=== PATIENT | female | born 1990 | race Caucasian/White ===

== ENCOUNTER 2020-10-07 10:29 | Emergency (ER) | payer OTHER ==
[2020-10-07 10:45] VITALS: BMI 25.7
[2020-10-07 11:52] LABS: BASO % 0.8 % (0-2.0); EOS % 2.1 % (0-4.5); HEMATOCRIT 23.4 % (32.4-45.2); HEMOGLOBIN 7.4 GM/dL (10.7-15.3); MCH 21.7 pg (25.7-33.7); MCHC 31.6 g/dl (32.0-36.0); MEAN CELL VOLUME 68.5 fl (80-96); MEAN PLT VOLUME 8.9 fl (7.5-11.1); MONO % 6.4 % (3.8-10.2); NEUT % 72.7 % (42.8-82.8); PLATELET COUNT 219 K/MM3 (134-434); RBC 3.42 M/mm3 (3.60-5.2); RDW 18.3 % (11.6-15.6); WHITE BLOOD COUNT 10.3 K/mm3 (4.0-10.0)
[2020-10-07 12:03] LABS: INR 1.07 (0.83-1.09); PROTHROMBIN TIME (PATIENT) 13.1 SEC (9.7-13.0)
[2020-10-07 12:05] LABS: ACTIVATED PTT 25.7 SECONDS (25.2-36.5)
[2020-10-07 12:26] LABS: POTASSIUM 3.9 mmol/L (3.5-5.1)
[2020-10-07 12:42] LABS: ALBUMIN 2.6 g/dl (3.4-5.0); BILIRUBIN,TOTAL 0.5 mg/dL (0.2-1); BLOOD UREA NITROGEN 7.8 mg/dL (7-18); CALCIUM 8.2 mg/dL (8.5-10.1); CREATININE 0.4 mg/dL (0.55-1.3); TOT PROT 6.3 g/dl (6.4-8.2)
[2020-10-07 12:43] VITALS: BP 98/60; PULSE 66; TEMP 97.9
[2020-10-07 20:53] LABS: ANISOCYTOSIS 0; MACROCYTOSIS 0; PLATELET ESTIMATE NORMAL
== END 2020-10-07 13:10 | disposition home or self-care (01) ==
LOC: JER 10:29
DX: E87.71 Transfusion associated circulatory overload (principal); Z3A.31 31 weeks gestation of pregnancy
CPT/HCPCS: 36415; 80053; 85025; 85610; 85730; 86850; 86900; 86901; 99283-25

== ENCOUNTER 2020-11-14 06:27 | Day surgery (SDC) | payer OTHER ==
[2020-11-14] MEDS ORDERED: FERRIC CARBOXYMALTOSE 750 MG in SODIUM CHLORIDE 250 ML IVPB ONE (13:45)
[2020-11-14 14:29] VITALS: TEMP 98.3
[2020-11-14 14:30] VITALS: BP 104/53; PULSE 73
== END 2020-11-14 15:08 | disposition home or self-care (01) ==
LOC: JINFUSION 06:27
PROVIDERS: ATTEND Obstetrics & Gynecology
PROC: 3E033GC Introduction of Other Therapeutic Substance into Peripheral Vein, Percutaneous Approach (ICD-10-PCS; principal; 2020-11-14)
DX: D50.9 Iron deficiency anemia, unspecified (principal)
CPT/HCPCS: 96365; J1439

== ENCOUNTER 2020-11-21 05:00 | Day surgery (SDC) | payer OTHER ==
[2020-11-21 13:21] VITALS: TEMP 98.1
[2020-11-21] MEDS ORDERED: FERRIC CARBOXYMALTOSE 750 MG in SODIUM CHLORIDE 250 ML IVPB ONE (14:00)
[2020-11-21 14:31] VITALS: BP 103/57; PULSE 77
== END 2020-11-21 15:04 | disposition home or self-care (01) ==
LOC: JINFUSION 05:00
PROVIDERS: ATTEND Obstetrics & Gynecology
PROC: 3E033GC Introduction of Other Therapeutic Substance into Peripheral Vein, Percutaneous Approach (ICD-10-PCS; principal; 2020-11-21)
DX: D50.9 Iron deficiency anemia, unspecified (principal)
CPT/HCPCS: 96365; J1439

== ENCOUNTER 2020-12-04 06:05 | Inpatient (IN) | payer OTHER ==
[2020-12-04] MEDS ORDERED: CITRIC ACID/SODIUM CITRATE 30 ML UNIT-DOSE CUP PO ONE (06:30)
[2020-12-04] MEDS: ELECTROLYTE-148 SOLN 500 ML IV SCH (06:30)
[2020-12-04 06:45] VITALS: BMI 28.3
[2020-12-04] MEDS ORDERED: morphine SULFATE/Preservative Free 0.5 MG/ML (1cc Syringe) ONE (07:29)
[2020-12-04] MEDS ORDERED: MIDAZOLAM HCL 2 MG/2 ML SINGLE DOSE VIAL ONE (07:29)
[2020-12-04] MEDS ORDERED: PHENYLEPHRINE HCL 10 MG/1 ML SINGLE DOSE VIAL ONE (07:29)
[2020-12-04] MEDS ORDERED: SUCCINYLCHOLINE CHLORIDE 200 MG/10 ML SYRINGE ONE (07:29)
[2020-12-04] MEDS ORDERED: ePHEDrine SULFATE 50 MG/1 ML AMPULE ONE (07:29)
[2020-12-04] MEDS ORDERED: PROPOFOL 20 ML ONE (07:29)
[2020-12-04] MEDS ORDERED: ONDANSETRON 4 MG/2 ML VIAL ONE (08:23)
[2020-12-04] MEDS ORDERED: ceFAZolin SODIUM 1 GM VIAL ONE (08:23)
[2020-12-04] MEDS ORDERED: OXYTOCIN 10 UNITS/ML VIAL ONE (08:23)
[2020-12-04] MEDS ORDERED: KETOROLAC TROMETHAMINE 30 MG/1 ML VIAL ONE (08:23)
[2020-12-04 09:20] LABS: CORD HCO3 20.2 mmHg (20-29); CORD PCO2 38.1 mmHg (30-78); CORD pH 7.342 (7.14-7.44)
[2020-12-04 09:22] LABS: CORD BASE EXCESS -1.8 mmol/L (0-2); CORD HCO3 25.4 mmHg (20-29); CORD PCO2 53.8 mmHg (30-78); CORD pH 7.292 (7.14-7.44)
[2020-12-04] MEDS ORDERED: IBUPROFEN 800 MG/8 ML IJ IVPB PRN (09:24)
[2020-12-04] MEDS ORDERED: METHYLERGONOVINE MALEATE 0.2 MG/1 ML AMP IM PRN (09:24)
[2020-12-04] MEDS ORDERED: morphine SULFATE/PF 0.5 MG/ML (2cc Syringe - QUVA) SPIN ONE (09:30)
[2020-12-04] MEDS ORDERED: OXYTOCIN 20 UNITS in 0.9% NS 1000 ML INFUS.BAG IV ONE (09:31)
[2020-12-04] MEDS ORDERED: OXYTOCIN 20 UNITS in 0.9% NS 20 UNIT/1,000 ML INFUS.BAG IV ONE (09:39)
[2020-12-04] MEDS ORDERED: SENNOSIDES/DOCUSATE COMBO (SENNA PLUS) TABLET (UD) PO PRN (22:00)
[2020-12-04] MEDS ORDERED: oxyCODONE HCL 5 MG TABLET PO PRN (22:00)
[2020-12-05] MEDS: ELECTROLYTE-148 SOLN 500 ML IV SCH ×3 (07:26→11:40)
[2020-12-05 08:50] LABS: EOS % 4.1 % (0-4.5); HEMATOCRIT 34.4 % (32.4-45.2); HEMOGLOBIN 11.2 GM/dL (10.7-15.3); MCH 27.7 pg (25.7-33.7); MCHC 32.7 g/dl (32.0-36.0); MEAN CELL VOLUME 84.6 fl (80-96); MEAN PLT VOLUME 9.1 fl (7.5-11.1); MONO % 7.9 % (3.8-10.2); PLATELET COUNT 186 K/MM3 (134-434); RBC 4.06 M/mm3 (3.60-5.2); RDW 30.8 % (11.6-15.6); WHITE BLOOD COUNT 6.4 K/mm3 (4.0-10.0)
[2020-12-05] MEDS ORDERED: BISACODYL 10 MG SUPP.RECT RC PRN (09:24)
[2020-12-05] MEDS: ENOXAPARIN NA (PORCINE) 40 MG/0.4 ML DISP.SYRIN SQ SCH (11:20)
[2020-12-05] MEDS: PRENATAL VITAMINS W/ FOLIC ACID TABLET (FP) PO SCH (11:21)
[2020-12-05] MEDS: IBUPROFEN 600 MG TABLET (FP) PO PRN ×2 (11:40→16:39)
[2020-12-05] MEDS: FERROUS SO4 325 MG TABLET (FP) PO SCH (18:05)
[2020-12-06] MEDS: IBUPROFEN 600 MG TABLET (FP) PO PRN ×2 (01:11→16:37)
[2020-12-06] MEDS: ACETAMINOPHEN 325 MG TABLET (FP) PO PRN ×2 (01:11→16:37)
[2020-12-06] MEDS: SIMETHICONE 80 MG TAB.CHEW (FP) PO PRN ×2 (01:12→16:37)
[2020-12-06] MEDS: ELECTROLYTE-148 SOLN 500 ML IV SCH ×2 (07:21)
[2020-12-06] MEDS: FERROUS SO4 325 MG TABLET (FP) PO SCH ×2 (08:50→16:37)
[2020-12-06] MEDS: ENOXAPARIN NA (PORCINE) 40 MG/0.4 ML DISP.SYRIN SQ SCH (10:03)
[2020-12-06] MEDS: PRENATAL VITAMINS W/ FOLIC ACID TABLET (FP) PO SCH (10:03)
[2020-12-07] MEDS: IBUPROFEN 600 MG TABLET (FP) PO PRN (05:17)
[2020-12-07] MEDS: ACETAMINOPHEN 325 MG TABLET (FP) PO PRN (05:17)
[2020-12-07] MEDS: SIMETHICONE 80 MG TAB.CHEW (FP) PO PRN (05:18)
[2020-12-07] MEDS: ELECTROLYTE-148 SOLN 500 ML IV SCH ×2 (07:11→07:12)
[2020-12-07] MEDS: FERROUS SO4 325 MG TABLET (FP) PO SCH (08:44)
[2020-12-07 08:57] LABS: EOS % 5.5 % (0-4.5); HEMATOCRIT 32.4 % (32.4-45.2); HEMOGLOBIN 10.7 GM/dL (10.7-15.3); LYMPH % 32.6 % (8-40); MCHC 32.9 g/dl (32.0-36.0); MEAN PLT VOLUME 9.6 fl (7.5-11.1); MONO % 8.3 % (3.8-10.2); NEUT % 52.6 % (42.8-82.8); PLATELET COUNT 203 K/MM3 (134-434); RBC 3.81 M/mm3 (3.60-5.2); RDW 29.7 % (11.6-15.6); WHITE BLOOD COUNT 4.9 K/mm3 (4.0-10.0)
[2020-12-07] MEDS: PRENATAL VITAMINS W/ FOLIC ACID TABLET (FP) PO SCH (09:22)
[2020-12-07] MEDS: ENOXAPARIN NA (PORCINE) 40 MG/0.4 ML DISP.SYRIN SQ SCH (09:22)
[2020-12-07 11:51] LABS: ANISOCYTOSIS 2+; MACROCYTOSIS 1+; PLATELET ESTIMATE NORMAL
[2020-12-07 11:57] VITALS: BP 101/68; PULSE 64; TEMP 98.5
== END 2020-12-07 12:10 | disposition home or self-care (01) | DRG 540 ==
LOC: JLDR 06:05 → J3W 11:00
PROVIDERS: ADMIT Obstetrics & Gynecology; ATTEND Obstetrics & Gynecology
PROC: 10D00Z1 Extraction of Products of Conception, Low, Open Approach (ICD-10-PCS; principal; 2020-12-04)
DX: O34.219 Maternal care for unspecified type scar from previous cesarean delivery (principal); O99.013 Anemia complicating pregnancy, third trimester; D64.9 Anemia, unspecified; O69.81X0 Labor and delivery complicated by cord around neck, without compression, not applicable or unspecified; Z3A.39 39 weeks gestation of pregnancy; Z37.0 Single live birth
CPT/HCPCS: 36415; 36600; 82803; 85025; 88307-TC

== ENCOUNTER 2022-01-23 07:34 | Emergency (ER) | payer OTHER ==
[2022-01-23 08:05] VITALS: BMI 20.9
[2022-01-23] MEDS ORDERED: LACTATED RINGERS SOLUTION 1000 ML INFUS.BAG IV ONE (08:30)
[2022-01-23 10:13] LABS: CALCIUM 8.2 mg/dL (8.5-10.1)
[2022-01-23 10:14] LABS: ALBUMIN 3.4 g/dl (3.4-5.0); BLOOD UREA NITROGEN 7.8 mg/dL (7-18)
[2022-01-23 10:15] LABS: BASO % 0.5 % (0-2.0); EOS % 0.1 % (0-4.5); HEMATOCRIT 35.4 % (32.4-45.2); HEMOGLOBIN 11.7 GM/dL (10.7-15.3); LYMPH % 14.1 % (8-40); MCH 28.3 pg (25.7-33.7); MCHC 33.1 g/dl (32.0-36.0); MEAN CELL VOLUME 85.5 fl (80-96); MEAN PLT VOLUME 9.6 fl (7.5-11.1); MONO % 8.3 % (3.8-10.2); PLATELET COUNT 171 10^3/uL (134-434); RBC 4.14 M/mm3 (3.60-5.2); RDW 13.5 % (11.6-15.6); WHITE BLOOD COUNT 3.9 K/mm3 (4.0-10.0)
[2022-01-23] MEDS ORDERED: KETOROLAC TROMETHAMINE 15 MG/ML VIAL IVPUSH ONE (10:17)
[2022-01-23 10:19] LABS: BILIRUBIN,TOTAL 0.4 mg/dL (0.2-1); TOT PROT 6.7 g/dl (6.4-8.2)
[2022-01-23] MEDS ORDERED: KETOROLAC TROMETHAMINE 15 MG/ML VIAL ONE (10:21)
[2022-01-23 10:25] LABS: CREATININE 0.6 mg/dL (0.55-1.3)
[2022-01-23 10:28] VITALS: BP 108/74; PULSE 88; TEMP 98.6
== END 2022-01-23 10:54 | disposition home or self-care (01) ==
LOC: JER 07:34
PROC: 3E0333Z Introduction of Anti-inflammatory into Peripheral Vein, Percutaneous Approach (ICD-10-PCS; principal; 2022-01-23)
DX: R50.9 Fever, unspecified (principal); R05.1 Acute cough
CPT/HCPCS: 0241U-QW; 36415; 80053; 84703; 85025; 87807; 93005; 93010; 99284-25; C9803-CS; U0003; U0005